=== PATIENT | male | born 1955 | race African-American/Black ===

== ENCOUNTER 2016-12-17 08:30 | Emergency (ER) | payer OTHER ==
[~2016-12-17] VITALS: Ht 182.9 cm; Wt 113.5 kg
[~2016-12-17 08:30] MED LIST: "\\\"WATER PILL\\\""; LISI40TA PO; LOVA20TA PO; METF500T PO; MULTTAB67 PO; OMEGCAP PO; TRIA37.53 PO
[2016-12-17 08:32] VITALS: BP 157/76; PULSE 68; RESP 14; TEMP 98.9; O2SAT 95
--- NOTE | 2016-12-17 09:03 | PD ---
HPI Chief Complaint: Dizziness Time Seen by Provider: 08:47 Travel History International Travel<30 days: No Contact w/Intl Traveler<30days: No Traveled to known affect area: No History of Present Illness HPI The patient is a 61-year-old [place] male who presents to the emergency Department with complaints of feeling "not quite right" with occasional off- balance, ataxia, and walking into the wall in the morning. The patient denies any outright dizziness, nausea, vomiting, dysarthria, or focal deficits. The patient states he had floaters in the right eye, was seen by his package collector , Dr. Cameron, several days ago. The patient was advised he has vitreous hemorrhage. He does have a previous history of possible stroke to the left eye in the past, but denies any other history of TIA or CVA. The patient does have a history of hypertension, hyperlipidemia, and diabetes. He denies any history tobacco use. The patient's primary physician is Dr. Díaz. Symptoms are moderate, there are no alleviating or exacerbating factors. PFSH Past Medical History High Cholesterol: Yes Diabetes: Yes Patient Takes Glucophage: Yes Diminished Hearing: No Hypertension: Yes Medical other: Yes (inguinal hernia repair 1984) Social History Alcohol Use: Yes (2 DRINKS EVERY OTHER DAY/LAST INTAKE LAST PM) Tobacco Use: No Allergies-Medications (Allergen,Severity, Reaction): Coded Allergies: No Known Allergies (Verified , 10/28/16) Reported Meds & Prescriptions Reported Meds & Active Scripts Active Reported Multiple Vitamin 1 Tab 1 Tab PO DAILY [place]-3 Fish Oil/Vitamin (Fish Oil-Cholecalciferol) 1,000-1,000 Mg Cap 300 Mg PO DAILY Metformin (Metformin HCl) 500 Mg Tab 500 Mg PO DAILY With a meal Triamterene-Hydrochlorothiazide 37.5-25 Mg Cap 1 Cap PO DAILY Lovastatin 20 Mg Tab 20 Mg PO DAILY Lisinopril 40 Mg Tab 40 Mg PO DAILY ["Water Pill"] Review of Systems Except as stated in HPI: all other systems reviewed are Neg General / Constitutional: No: Fever Eyes: Positive: Other (floaters in the right eye, already seen by his package collector) HENT: No: Headaches, Lightheadedness Cardiovascular: No: Chest Pain or Discomfort Respiratory: No: Shortness of Breath Gastrointestinal: No: Nausea, Vomiting Musculoskeletal: No: Weakness Neurologic: Positive: Dizziness, Ataxia, Paresthesia (chronic numbness of the hands bilaterally for several years in the lateral aspect of the left leg), No: Change in Mentation, Slurred Speech Physical Exam Narrative GENERAL: Awake, alert, pleasant [id number] male who appears his stated age and is in no acute respiratory distress. SKIN: Focused skin assessment warm/dry. HEAD: Atraumatic. Normocephalic. EYES: Pupils equal and round. 3 mm bilateral and reactive. EOMs are intact. Patient is able to see fingers at a distance of 2 feet without difficulty. ENT: No nasal bleeding or discharge. Mucous membranes pink and moist. NECK: Trachea midline. No JVD. CARDIOVASCULAR: Regular rate and rhythm. No murmur appreciated. RESPIRATORY: No accessory muscle use. Clear to auscultation. Breath sounds equal bilaterally. GASTROINTESTINAL: Abdomen soft, non-tender, nondistended. Hepatic and splenic margins not palpable. MUSCULOSKELETAL: No obvious deformities. No clubbing. No cyanosis. No edema. NEUROLOGICAL: Awake and alert. No obvious cranial nerve deficits. Motor grossly within normal limits. Normal speech. Finger to nose is normal. Heel-to -lopez is normal. Alternating hand movements are normal. No drift of the upper or lower extremity is. Sensation of face and arms are equal and symmetric. Mildly decreased sensation lateral aspect left leg, patient states that this is chronic. PSYCHIATRIC: Appropriate mood and affect; insight and judgment normal. Data Data Last Documented VS Vital Signs Date Time Temp Pulse Resp B/P (MAP) Pulse Ox O2 Delivery O2 Flow Rate FiO2 12/17/16 09:08 18 98 Room Air 12/17/16 08:49 88 12/17/16 08:32 98.9 Orders Orders Electrocardiogram (12/17/16 08:58) Prothrombin Time / Inr (Pt) (12/17/16 08:58) Act Partial Throm Time (Ptt) (12/17/16 08:58) Complete Blood Count With Diff (12/17/16 08:58) Comprehensive Metabolic Panel (12/17/16 08:58) Creatine Kinase (Cpk) (12/17/16 08:58) Troponin I (12/17/16 08:58) Ecg Monitoring (12/17/16 08:58) Iv Access Insert/Monitor (12/17/16 08:58) Oximetry (12/17/16 08:58) Mri Brain W/O Contrast (12/17/16 ) Lorazepam Inj (Ativan Inj) (12/17/16 09:15) CKMB (12/17/16 09:06) CKMB% (12/17/16 09:06) Urinalysis - C+S If Indicated (12/17/16 10:58) Ed Discharge Order (12/17/16 11:47) Labs Laboratory Tests Test 12/17/16 08:50 12/17/16 09:06 Urine Color LIGHT-YELLOW Urine Turbidity CLEAR Urine pH 5.0 Urine Specific [place] 1.017 Urine Protein NEG mg/dL Urine Glucose (UA) NEG mg/dL Urine Ketones NEG mg/dL Urine Occult Blood NEG Urine Nitrite NEG Urine Bilirubin NEG Urine Urobilinogen LESS THAN 2.0 MG/DL Urine Leukocyte Esterase NEG Urine WBC 1 /hpf Microscopic Urinalysis Comment CULT NOT INDICATED White Blood Count 7.3 TH/MM3 Red Blood Count 5.08 MIL/MM3 Hemoglobin 14.2 GM/DL Hematocrit 43.7 % Mean Corpuscular Volume 86.0 FL Mean Corpuscular Hemoglobin 28.0 PG Mean Corpuscular Hemoglobin Concent 32.5 % Red Cell Distribution Width 14.3 % Platelet Count 290 TH/MM3 Mean Platelet Volume 7.6 FL Neutrophils (%) (Auto) 59.7 % Lymphocytes (%) (Auto) 30.1 % Monocytes (%) (Auto) 7.2 % Eosinophils (%) (Auto) 1.9 % Basophils (%) (Auto) 1.1 % Neutrophils # (Auto) 4.4 TH/MM3 Lymphocytes # (Auto) 2.2 TH/MM3 Monocytes # (Auto) 0.5 TH/MM3 Eosinophils # (Auto) 0.1 TH/MM3 Basophils # (Auto) 0.1 TH/MM3 CBC Comment DIFF FINAL Differential Comment Prothrombin Time 9.9 SEC Prothromb Time International Ratio 0.9 RATIO Activated Partial Thromboplast Time 29.9 SEC Blood Urea Nitrogen 18 MG/DL Creatinine 0.87 MG/DL Random Glucose 115 MG/DL Total Protein 7.4 GM/DL Albumin 3.9 GM/DL Calcium Level 9.1 MG/DL Alkaline Phosphatase 79 U/L Aspartate Amino Transf (AST/SGOT) 29 U/L Alanine Aminotransferase (ALT/SGPT) 50 U/L Total Bilirubin 0.3 MG/DL Sodium Level 136 MEQ/L Potassium Level 4.2 MEQ/L Chloride Level 103 MEQ/L Carbon Dioxide Level 26.3 MEQ/L Anion Gap 7 MEQ/L Estimat Glomerular Filtration Rate 108 ML/MIN Total Creatine Kinase 722 U/L Creatine Kinase MB 10.4 NG/ML Creatine Kinase MB % 1.4 % Troponin I LESS THAN 0.02 NG/ML MDM Medical Decision Making Medical Screen Exam Complete: Yes Emergency Medical Condition: Yes Medical Record Reviewed: Yes Interpretation(s) EKG reveals normal sinus rhythm with a rate of 66. Inverted T-wave noted in lead 3. Last Impressions Brain MRI 12/17/16 0000 Signed Impressions: Service Date/Time: Saturday, December 17, 2016 09:51 - CONCLUSION: Minimal periventricular white matter changes, negative or acute infarct. I do not see reason for the ataxia. Ted Cohen MD FACR Laboratory Tests Test 12/17/16 09:06 White Blood Count 7.3 TH/MM3 Red Blood Count 5.08 MIL/MM3 Hemoglobin 14.2 GM/DL Hematocrit 43.7 % Mean Corpuscular Volume 86.0 FL Mean Corpuscular Hemoglobin 28.0 PG Mean Corpuscular Hemoglobin Concent 32.5 % Red Cell Distribution Width 14.3 % Platelet Count 290 TH/MM3 Mean Platelet Volume 7.6 FL Neutrophils (%) (Auto) 59.7 % Lymphocytes (%) (Auto) 30.1 % Monocytes (%) (Auto) 7.2 % Eosinophils (%) (Auto) 1.9 % Basophils (%) (Auto) 1.1 % Neutrophils # (Auto) 4.4 TH/MM3 Lymphocytes # (Auto) 2.2 TH/MM3 Monocytes # (Auto) 0.5 TH/MM3 Eosinophils # (Auto) 0.1 TH/MM3 Basophils # (Auto) 0.1 TH/MM3 CBC Comment DIFF FINAL Differential Comment Prothrombin Time 9.9 SEC Prothromb Time International Ratio 0.9 RATIO Activated Partial Thromboplast Time 29.9 SEC Blood Urea Nitrogen 18 MG/DL Creatinine 0.87 MG/DL Random Glucose 115 MG/DL Total Protein 7.4 GM/DL Albumin 3.9 GM/DL Calcium Level 9.1 MG/DL Alkaline Phosphatase 79 U/L Aspartate Amino Transf (AST/SGOT) 29 U/L Alanine Aminotransferase (ALT/SGPT) 50 U/L Total Bilirubin 0.3 MG/DL Sodium Level 136 MEQ/L Potassium Level 4.2 MEQ/L Chloride Level 103 MEQ/L Carbon Dioxide Level 26.3 MEQ/L Anion Gap 7 MEQ/L Estimat Glomerular Filtration Rate 108 ML/MIN Total Creatine Kinase 722 U/L Creatine Kinase MB 10.4 NG/ML Creatine Kinase MB % 1.4 % Troponin I LESS THAN 0.02 NG/ML UA is negative Differential Diagnosis Differential diagnosis includes cerebellar infarct, CVA, TIA, intracranial hemorrhage, hyponatremia, labyrinthitis, peripheral vertigo. Narrative Course IV was established, labs are drawn and sent, and the patient was placed on cardiac telemetry monitoring and continuous pulse oximetry monitoring. The patient has occasional symptoms of ataxia with walking into the wall and feeling off balance, no other focal deficits. Symptoms been ongoing for 4-5 days, may be peripheral vertigo versus cerebellar infarct. Therefore, MRI was ordered. The patient was administered Ativan 1 mg intravenously for claustrophobia. Orthostatic vital signs were obtained. The patient's laboratory evaluation is unremarkable. MRI was negative, I discussed the findings with Dr. Cohen, no evidence of cerebellar infarct. Patient will benefit from outpatient follow-up with his primary physician. The patient did complain of mild polyuria, does have a history diabetes and is on a diuretic, denies any dysuria. UA was sent to lab. Diagnosis Primary Impression: Dizziness Patient Instructions: General Instructions Additional Instructions: Please provide a patient a copy of his MRI results and lab results at discharge. Follow-up with your primary physician. Return if symptoms worsen or progress. Disposition: 01 DISCHARGE HOME Condition: Stable Deric Martínez MD Dec 17, 2016 09:03
[2016-12-17 09:08] VITALS: RESP 18; O2SAT 98
[2016-12-17] MEDS ORDERED: LORazepam 2 MG/ML VIAL IV PUSH ONE (09:15)
[2016-12-17 09:28] LABS: AUTOMATED NEUTROPHIL # 4.4 TH/MM3 (1.8-7.7); BASOPHIL # 0.1 TH/MM3 (0-0.2); BASOPHIL % 1.1 % (0.0-2.0); EOSINOPHIL # 0.1 TH/MM3 (0-0.4); EOSINOPHIL % 1.9 % (0.0-4.0); HEMATOCRIT 43.7 % (39.0-51.0); HEMO FLAGS DIFF FINAL; LYMPH % 30.1 % (9.0-44.0); LYMPHOCYTE # 2.2 TH/MM3 (1.0-4.8); MEAN CORPUSCULAR HGB CONC 32.5 % (32.0-36.0); MONO % 7.2 % (0.0-8.0); NEUT % 59.7 % (16.0-70.0); PLATELET COUNT 290 TH/MM3 (150-450); RED BLOOD COUNT 5.08 MIL/MM3 (4.50-5.90); RED CELL DISTRIBUTION WIDTH 14.3 % (11.6-17.2); WHITE BLOOD COUNT 7.3 TH/MM3 (4.0-11.0)
[2016-12-17 09:38] LABS: APTT (PATIENT) 29.9 SEC (24.3-30.1); INTERNATIONAL NORMALIZED RATIO 0.9 RATIO; PROTHROMBIN TIME - PATIENT 9.9 SEC (9.8-11.6)
[2016-12-17 09:49] LABS: ANION GAP 7 MEQ/L (5-15); AST (GOT) 29 U/L (15-37); BICARBONATE 26.3 MEQ/L (21.0-32.0); BLOOD UREA NITROGEN 18 MG/DL (7-18); CHLORIDE 103 MEQ/L (98-107); GLOMERULAR FILTRATION RATE 108 ML/MIN (>89); POTASSIUM 4.2 MEQ/L (3.5-5.1); SODIUM (NA) 136 MEQ/L (136-145)
[2016-12-17 09:54] LABS: ALKALINE PHOSPHATASE 79 U/L (45-117); ALT (GPT) 50 U/L (12-78); CREATINE KINASE 722 U/L (39-308); TOTAL BILIRUBIN ADULT 0.3 MG/DL (0.2-1.0)
[2016-12-17 10:10] LABS: CKMB 10.4 NG/ML (0.5-3.6)
--- NOTE | 2016-12-17 10:27 | RADRPT ---
EXAM DATE/TIME: 12/17/2016 09:51 [facility] COMPARISON: No previous studies available for comparison. INDICATIONS : Stroke. MEDICAL HISTORY : Hypertension. Diabetes mellitus type 2. SURGICAL HISTORY : Inguinal hernia repair. ENCOUNTER: Initial ACUITY: 2 day PAIN SCORE: 0/10 LOCATION: head TECHNIQUE: Multiplanar, multisequence MRI of the brain was performed without contrast. FINDINGS: CEREBRUM: Very minimal periventricular white matter changes are noted. There is no restricted diffusion to sug gest acute infarct. In the posterior fossa, there is no mastoid disease. Seventh and eighth nerves appear normal. There is no acoustic neuroma. There's no parenchymal hemorrhage, acute infarction or mass lesion identified. CONCLUSION: Minimal periventricular white matter changes, negative or acute infarct. I do not see reason for the ataxia. Ted Cohen MD FACR on December 17, 2016 at 10:22 Board Certified Radiologist. This report was verified electronically.
[2016-12-17 11:37] LABS: BLOOD, URINE NEG (NEG); GLUCOSE,URINE NEG (NEG); KETONE, URINE NEG (NEG); NITRITE,URINE NEG (NEG); URINE COLOR LIGHT-YELLOW (YELLW/STRAW)
[2016-12-17 11:45] LABS: COMMENT (UR) CULT NOT INDICATED; CULTURE IF INDICATED CULT NOT INDICATED
[2016-12-17 12:06] VITALS: BP 149/70; PULSE 86; RESP 20; O2SAT 99
--- NOTE | 2016-12-19 08:47 | EKG ---
Date Performed: 12/17/2016 Time Performed: 09:13:31 PTAGE: 61 years EKG: Sinus rhythm NORMAL ECG NO PREVIOUS TRACING DOCTOR: Siddhartha Barry Interpretating Date/Time 12/19/2016 08:44:37
== END 2016-12-17 12:09 | disposition home or self-care (01) ==
LOC: NEPE 08:30
DX: R42 Dizziness and giddiness (principal); E78.00 Pure hypercholesterolemia, unspecified; E11.9 Type 2 diabetes mellitus without complications; I10 Essential (primary) hypertension; Z79.899 Other long term (current) drug therapy
CPT/HCPCS: 70551; 80053; 81001; 82550; 82552; 84484; 85025; 85610; 85730; 93005; 96374; 99285; J2060

== ENCOUNTER 2017-01-30 00:58 | Emergency (ER) | payer OTHER ==
[~2017-01-30] VITALS: Ht 182.9 cm; Wt 111.4 kg
[2017-01-30 01:00] VITALS: BP 155/83; PULSE 84; RESP 16; TEMP 99.2; O2SAT 95
[2017-01-30] MEDS ORDERED: HYDR12.57 PO (01:19)
[2017-01-30] MEDS ORDERED: LOSA50TA PO (01:19)
--- NOTE | 2017-01-30 01:53 | RADRPT ---
EXAM DATE/TIME: 01/30/2017 01:29 [facility] COMPARISON: No previous studies available for comparison. INDICATIONS : Cough for 1 week. Wheezing. MEDICAL HISTORY : Hypertension. SURGICAL HISTORY : None. ENCOUNTER: Initial ACUITY: 1 week PAIN SCORE: 0/10 LOCATION: Bilateral chest FINDINGS: A single view of the chest demonstrates the lungs to be symmetrically aerated without evidence of mas s, infiltrate or effusion. The cardiomediastinal contours are unremarkable. Osseous structures are intact. CONCLUSION: No evidence of acute cardiopulmonary disease. Agustin Melendez MD on January 30, 2017 at 1:51 Board Certified Radiologist. This report was verified electronically.
[2017-01-30] MEDS ORDERED: ALBU0.08 NEB (02:37)
[2017-01-30] MEDS ORDERED: ALBUAER3 INH (02:37)
[2017-01-30] MEDS ORDERED: PRED20 PO (02:37)
--- NOTE | 2017-01-30 02:40 | PD ---
HPI Chief Complaint: Cold / Flu Symptoms Time Seen by Provider: 02:27 Travel History International Travel<30 days: No Contact w/Intl Traveler<30days: No Traveled to known affect area: No History of Present Illness HPI 61-year-old male presents for evaluation of cough and wheezing. Symptoms started 1 week ago. The cough is nonproductive. He has been using his son's albuterol nebulizer which helps. He reports that his son and had similar symptoms. Denies fevers, chills, recent travel, sore throat. He does also note that he used to have a somewhat persistent dry cough secondary to lisinopril however his primary care physician changed his lisinopril to losartan. This is a different kind of cough. He has no other complaints. PFSH Past Medical History High Cholesterol: Yes Diabetes: Yes Patient Takes Glucophage: Yes (METFORMIN ) Diminished Hearing: No Hypertension: Yes Influenza Vaccination: No Past Surgical History Surgical History: No Previous Surgery Other Surgery: Yes (HERNIA ) Social History Alcohol Use: Yes (2 DRINKS EVERY OTHER DAY/LAST INTAKE LAST PM) Tobacco Use: No Substance Use: No Allergies-Medications (Allergen,Severity, Reaction): Coded Allergies: No Known Allergies (Verified Adverse Reaction, Unknown, 01/30/17) Reported Meds & Prescriptions Reported Meds & Active Scripts Active Prednisone 20 Mg Tab 20 Mg PO BID 5 Days Albuterol Neb (Albuterol Sulfate) 2.5 Mg/3 Ml Neb 2.5 Mg NEB Q4HR NEB PRN Proair Hfa 8.5 GM Inh (Albuterol Sulfate) 90 Mcg/Act Aer 2 Puff INH Q4-6H PRN 108 mcg/actuation Reported Losartan (Losartan Potassium) 50 Mg Tab 50 Mg PO DAILY Hydrochlorothiazide 12.5 Mg Cap 12.5 Mg PO DAILY Multiple Vitamin 1 Tab 1 Tab PO DAILY [place]-3 Fish Oil/Vitamin (Fish Oil-Cholecalciferol) 1,000-1,000 Mg Cap 300 Mg PO DAILY Metformin (Metformin HCl) 500 Mg Tab 500 Mg PO DAILY With a meal Triamterene-Hydrochlorothiazide 37.5-25 Mg Cap 1 Cap PO DAILY Lovastatin 20 Mg Tab 20 Mg PO DAILY ["Water Pill"] Review of Systems Except as stated in HPI: all other systems reviewed are Neg Physical Exam Narrative GENERAL: Well-nourished male in no acute distress SKIN: Warm and dry. HEAD: Atraumatic. Normocephalic. EYES: Pupils equal and round. No scleral icterus. No injection or drainage. ENT: No nasal bleeding or discharge. Mucous membranes pink and moist. NECK: Trachea midline. No JVD. CARDIOVASCULAR: Regular rate and rhythm. No murmur appreciated. RESPIRATORY: No accessory muscle use. Clear to auscultation. Breath sounds equal bilaterally. Data Data Last Documented VS Vital Signs Date Time Temp Pulse Resp B/P (MAP) Pulse Ox O2 Delivery O2 Flow Rate FiO2 01/30/17 01:00 99.2 84 16 155/83 (107) 95 Room Air Orders Orders Influenzae A/B Antigen (01/30/17 01:24) Chest, Single Ap (01/30/17 ) Prednisone (Deltasone) (01/30/17 02:45) Ed Discharge Order (01/30/17 02:37) MDM Medical Decision Making Medical Screen Exam Complete: Yes Emergency Medical Condition: Yes Medical Record Reviewed: Yes Differential Diagnosis Rhonchi this, reactive airway disease, pneumonia, influenza, COPD, asthma, lisinopril induced cough Narrative Course 61-year-old male with dry cough and wheezing for one week. Physical examination is unremarkable. No wheezing currently but he does note that he used albuterol nebulizer just prior to arrival. Chest x-ray and influenza antigen test are negative. The patient will be discharged with albuterol nebulizers refill as well as an albuterol inhaler and a short course of prednisone. Diagnosis Primary Impression: Bronchitis Additional Instructions: Medication as prescribed. Follow-up with primary care physician as needed. Return for any emergent medical conditions. Med/Other Pt SpecificInfo: Prescription(s) given Scripts Prednisone (Prednisone) 20 Mg Tab 20 MG PO BID for 5 Days, #10 TAB 0 Refills Prov: Ajay Rivera MD 01/30/17 Albuterol Neb (Albuterol Neb) 2.5 Mg/3 Ml Neb 2.5 MG NEB Q4HR NEB Y for SHORTNESS OF BREATH, #60 NEBULE 0 Refills Prov: Ajay Rivera MD 01/30/17 Albuterol 8.5 GM Inh (Proair Hfa 8.5 GM Inh) 90 Mcg/Act Aer 2 PUFF INH Q4-6H Y for SHORTNESS OF BREATH, #1 INHALER 0 Refills 108 mcg/actuation Prov: Ajay Rivera MD 01/30/17 Disposition: 01 DISCHARGE HOME Condition: Stable [place] Jan 30, 2017 02:40
[2017-01-30] MEDS ORDERED: predniSONE 20 MG TAB PO ONE (02:45)
== END 2017-01-30 03:00 | disposition home or self-care (01) ==
LOC: NEPD 00:58
DX: J40 Bronchitis, not specified as acute or chronic (principal); E78.00 Pure hypercholesterolemia, unspecified; E11.9 Type 2 diabetes mellitus without complications; I10 Essential (primary) hypertension; Z79.51 Long term (current) use of inhaled steroids; Z79.899 Other long term (current) drug therapy
CPT/HCPCS: 71010; 87804; 99284; J7512